=== PATIENT | male | born 1985 | race Two or more races ===

== ENCOUNTER 2023-06-13 13:25 | Emergency (ER) | payer SELFPAY ==
[~2023-06-13] VITALS: Ht 180.3 cm; Wt 83.9 kg
[2023-06-13 13:48] VITALS: BP 105/67; TEMP 98.5; O2SAT 98
[2023-06-13] MEDS ORDERED: KETOROLAC TROMETHAMINE INJ 60 MG/2 ML VIAL IM ONE (15:00)
[2023-06-13] MEDS ORDERED: KETOROLAC TROMETHAMINE INJ 30 MG/ML VIAL ONE (15:04)
[2023-06-13] MEDS ORDERED: LIDO30AD10 TP (16:23)
[2023-06-13] MEDS ORDERED: IBUP-1958 PO (16:23)
[2023-06-13] MEDS ORDERED: HYDR-3980 PO (16:23)
== END 2023-06-13 16:42 | disposition home or self-care (01) ==
LOC: ER 13:29
DX: S22.41XA Multiple fractures of ribs, right side, initial encounter for closed fracture (principal); V99.XXXA Unspecified transport accident, initial encounter; Y93.89 Activity, other specified; Y92.89 Other specified places as the place of occurrence of the external cause; Y99.8 Other external cause status
CPT/HCPCS: 71100-TC; J1885